=== PATIENT | female | born 1985 | race Caucasian/White ===

== ENCOUNTER → 2021-01-19 | Outpatient (CLI) | payer BC, OTHER ==
[~2021-01-19] MED LIST: LEVO150T PO; LEVO1TAB29 PO
== END | disposition home or self-care (01) ==
LOC: STAR 12:59
PROVIDERS: ATTEND Specialist
DX: Z20.822 Contact with and (suspected) exposure to COVID-19 (principal); N80.9 Endometriosis, unspecified; R10.2 Pelvic and perineal pain; N92.0 Excessive and frequent menstruation with regular cycle; D25.0 Submucous leiomyoma of uterus
CPT/HCPCS: U0003; U0005

== ENCOUNTER 2021-01-23 05:23 | Day surgery (SDC) | payer BC, OTHER ==
[~2021-01-23] VITALS: Ht 172.7 cm; Wt 82.6 kg
[2021-01-23 06:23] VITALS: BP 136/88
[2021-01-23] MEDS ORDERED: CEFOTETAN PMX 2GM/50ML 50 ML IVPB ONE (06:30)
[2021-01-23] MEDS ORDERED: LACTATED RINGERS 1,000 ML IV SCH (06:30)
[2021-01-23] MEDS ORDERED: CHLORHEXIDINE 15 ML UDC PO ONE (06:30)
[2021-01-23 06:47] LABS: HCG UR SG 1.029 (1.003-1.030)
[2021-01-23] MEDS ORDERED: BUPIVACAINE/PF 0.25% ONE (06:55)
[2021-01-23] MEDS ORDERED: METHYLENE BLUE 50 MG/10 ML AMP ONE (06:56)
[2021-01-23] MEDS ORDERED: SCOPOLAMINE 1MG PATCH TD ONE (07:15)
[2021-01-23] MEDS ORDERED: MIDAZOLAM 1 MG/ML, 2ML ONE (07:15)
[2021-01-23] MEDS ORDERED: FENTANYL PF 100 MCG/2ML ONE ×2 (07:15→09:26)
[2021-01-23] MEDS ORDERED: HYDROmorphone 1 MG/ML, 1ML INJ ONE (07:15)
[2021-01-23] MEDS ORDERED: PROPOFOL 10 MG/ML, 20ML ONE (07:27)
[2021-01-23] MEDS ORDERED: GLYCOPYRROLATE 0.2MG/1ML, 5ML ONE (07:27)
[2021-01-23] MEDS ORDERED: DEXAMETHASONE 4 MG/ML, 1ML ONE (07:27)
[2021-01-23] MEDS ORDERED: ROCURONIUM 10 MG/ML,10ML ONE (07:27)
[2021-01-23] MEDS ORDERED: NEOSTIGMINE 1 MG/ML, 10ML ONE (07:27)
[2021-01-23] MEDS ORDERED: ONDANSETRON 2MG/ML, 2ML ONE (07:27)
[2021-01-23] MEDS ORDERED: LIDOCAINE 1%, 20ML ONE (07:27)
[2021-01-23] MEDS ORDERED: FENTANYL PF 100 MCG/2ML IV PRN (07:30)
[2021-01-23] MEDS ORDERED: HYDROmorphone 1 MG/ML, 1ML INJ IVPush PRN (07:30)
[2021-01-23] MEDS ORDERED: METOPROLOL 1 MG/ML, 5ML IV PRN (07:30)
[2021-01-23] MEDS ORDERED: DIPHENHYDRAMINE 50 MG/ML, 1ML IVPush PRN (07:30)
[2021-01-23] MEDS ORDERED: METOCLOPRAMIDE 5 MG/ML, 2ML IVPush PRN (07:30)
[2021-01-23] MEDS ORDERED: SCOPOLAMINE 1MG PATCH TD SCH (07:30)
[2021-01-23] MEDS ORDERED: KETOROLAC 30 MG/1 ML IVPush PRN (07:30)
[2021-01-23] MEDS ORDERED: hydrALAzine 20 MG/ML, 1ML IV PRN (07:30)
[2021-01-23] MEDS ORDERED: HALOPERIDOL 5 MG/ML IV PRN (07:30)
[2021-01-23] MEDS ORDERED: EPHEDRINE 50 MG/ML, 1ML IVPush PRN (07:30)
[2021-01-23] MEDS ORDERED: OXYcodone 5 MG/5 ML ORAL.SOL UDC PO PRN (07:30)
[2021-01-23] MEDS ORDERED: ONDANSETRON 2MG/ML, 2ML IVPush PRN (07:30)
[2021-01-23] MEDS ORDERED: LABETALOL 5MG/ML, 20ML IV PRN (07:30)
[2021-01-23] MEDS ORDERED: DIAZEPAM 5 MG/ML, 2ML IVPush PRN (07:30)
[2021-01-23] MEDS ORDERED: PROMETHAZINE 25 MG/ML, 1ML IVPush PRN (07:30)
[2021-01-23] MEDS ORDERED: MEPERIDINE/PF 25MG/0.5ML IVPush PRN (07:30)
[2021-01-23] MEDS ORDERED: ACETAMINOPHEN 325 MG TABLET PO PRN (07:30)
[2021-01-23] MEDS ORDERED: KETOROLAC 30 MG/1 ML ONE (09:26)
[2021-01-23] MEDS ORDERED: MEPERIDINE/PF 25MG/ML,1ML ONE (09:28)
== END 2021-01-23 13:15 | disposition home or self-care (01) ==
LOC: OUT 05:23 → EDBD 07:30 → OUT 13:15
PROVIDERS: ATTEND Specialist
DX: N80.3 Endometriosis of pelvic peritoneum (principal); D25.1 Intramural leiomyoma of uterus; E03.9 Hypothyroidism, unspecified; Z98.890 Other specified postprocedural states; Z79.899 Other long term (current) drug therapy; Z72.89 Other problems related to lifestyle; Z80.3 Family history of malignant neoplasm of breast
CPT/HCPCS: 57268; 58571; 81025; 88307; J1100; J1170; J1885; J2175; J2250; J2405; J2704; J2710; J3010; J7120; S2900; Q9968